=== PATIENT | female | born 1940 | race Two or more races ===

== ENCOUNTER 2016-05-24 09:37 | Day surgery (SDC) | payer OTHER ==
[2016-05-18 14:13] VITALS: BMI 26.4
[2016-05-24] MEDS ORDERED: ACETAMINOPHEN 325 MG TABLET (FP) PO PRN (09:46)
[2016-05-24] MEDS: PHENYLEPHRINE 2.5% OPHTH SOLN 15 ML BOTTLE ONE ×5 (10:00→10:40)
[2016-05-24] MEDS: CYCLOPENTOLATE HCL 1% OPHTH SOLN 2 ML BOTTLE ONE ×5 (10:00→10:40)
[2016-05-24] MEDS: TROPICAMIDE 1% OPHTH SOLN 15 ML BOTTLE ONE ×5 (10:00→10:40)
[2016-05-24] MEDS: FLURBIPROFEN 0.03% OPHTH SOLN 2.5 ML BOTTLE ONE ×5 (10:00→10:40)
[2016-05-24] MEDS: GENTAMICIN SULFATE 0.3% OPHTHALMIC (EYE DROPS) 5ML BOTTLE ONE ×2 (10:15→10:30)
--- NOTE | 2016-05-24 14:35 | OP ---
DATE OF OPERATION: 05/24/2016 PROCEDURE: Planned extracapsular cataract extraction, phacoemulsification, insertion of posterior chamber lens implant in the right eye. SURGEON: Omar Preciado MD COMMUNITY DEVELOPMENT AIDE SURGEON: Omar Preciado MD ANESTHESIA: Local standby. NURSE MODEL MAKER APPRENTICE: Elsa ANESTHESIOLOGIST: Claudia Sinha MD COMPLICATIONS: None. PREOPERATIVE DIAGNOSIS: Cataract, right eye. POSTOPERATIVE DIAGNOSIS: Cataract, right eye. FINDINGS AND PROCEDURES: After successful peribulbar anesthesia was given to the right eye, the patient was prepped and draped in the usual manner. I exposed the right eye. The lid speculum was inserted, and the microscope went in a position over the right eye. Lid speculum and Tegaderm strips were placed on the lids. Attention was focused on the superior fornix-based flap, superior fornix area, were superior fornix-based flap was fashioned for 12 mm using Jose scissors and 0.12 forceps, and hemostasis achieved with electrocautery. A limbal groove was then fashioned for 3 mm with the crescent blade and dissected anterior into clear cornea, and a 3-mm blade was used to enter the anterior chamber. Then, under Viscoat, a 360-degree anterior capsulotomy was performed, and leaflet removed from the eye. Then, phacoemulsification of the entire nucleus was done in approximately 2 minutes time followed by irrigation and aspiration of all cortical material, and an intact posterior capsule and red reflex present. Provisc was injected in the posterior chamber, then deep in the posterior capsule, and the implant was inspected carefully with a microscope, found to be free of defects, debris, and flaws, and it was folded, placed into the Provisc-filled cartridge, and the cartridge placed in the injector, and the implant was injected into the eye such that the inferior haptic was in the inferior capsular bag, and the superior haptic was in the superior capsular bag, and rotated in the horizontal position with the Sinskey hook. Provisc was aspirated out and replaced with Miochol, Miostat, and BSS, and the wound was closed with a single interrupted 10-0 Ethilon suture, and tested for leakage, and none was found. Conjunctival tenon flap was reapproximated. At this point, the implant was fixated in the capsular bag, centrally located with the round pupil intact, posterior capsule, and a red reflex present. Topical Betoptic S and Maxitrol ophthalmic suspensions were placed as was Bacitracin ophthalmic ointment. Then, the Tegaderm strips and lid speculum were removed from the lids. The lids were closed. A patch and shield were placed on the eye, and the patient was then discharged from the operating room to the recovery area in good condition having tolerated the procedure well. OMAR PRECIADO M.D. [id number]
[2016-05-24 19:33] VITALS: TEMP 98
[2016-05-24 19:36] VITALS: BP 114/84; PULSE 77
== END 2016-05-24 13:20 | disposition home or self-care (01) ==
LOC: FASU 09:37
PROVIDERS: ATTEND Ophthalmology
PROC: 08RJ3JZ Replacement of Right Lens with Synthetic Substitute, Percutaneous Approach (ICD-10-PCS; principal; 2016-05-24 11:41)
DX: H26.8 Other specified cataract (principal)